=== PATIENT | male | born 1995 | race Caucasian/White ===

== ENCOUNTER 2017-06-26 20:14 | Emergency (ER) | payer OTHER ==
[2017-06-26 20:46] VITALS: BP 133/76; PULSE 98; RESP 18; TEMP 98.6; O2SAT 98
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
[2017-06-26 21:12] LABS: AUTOMATED NEUTROPHIL # 10.6 TH/MM3 (1.8-7.7); BASOPHIL % 0.3 % (0.0-2.0); EOSINOPHIL # 0.3 TH/MM3 (0-0.4); EOSINOPHIL % 1.8 % (0.0-4.0); HEMO FLAGS DIFF FINAL; LYMPH % 17.8 % (9.0-44.0); LYMPHOCYTE # 2.6 TH/MM3 (1.0-4.8); MEAN CELL VOLUME 82.9 FL (80.0-100.0); MEAN CORPUSCULAR HGB CONC 33.8 % (32.0-36.0); MONO % 7.8 % (0.0-8.0); NEUT % 72.3 % (16.0-70.0); PLATELET COUNT 337 TH/MM3 (150-450); RED BLOOD COUNT 4.71 MIL/MM3 (4.50-5.90); RED CELL DISTRIBUTION WIDTH 13.9 % (11.6-17.2); WHITE BLOOD COUNT 14.7 TH/MM3 (4.0-11.0)
[2017-06-26 21:30] LABS: ANION GAP 8 MEQ/L (5-15); AST (GOT) 43 U/L (15-39); BLOOD UREA NITROGEN 10 MG/DL (7-18); CHLORIDE 103 MEQ/L (98-107); GLOMERULAR FILTRATION RATE 137 ML/MIN (>89); POTASSIUM 3.8 MEQ/L (3.5-5.1); SODIUM (NA) 137 MEQ/L (136-145)
[2017-06-26 21:31] LABS: ALT (GPT) 82 U/L (9-52)
[2017-06-26 21:33] LABS: ALKALINE PHOSPHATASE 93 U/L (45-117); TOTAL BILIRUBIN ADULT 0.2 MG/DL (0.2-1.0)
--- NOTE | 2017-06-26 21:57 | RADRPT ---
EXAM DATE/TIME: 06/26/2017 21:43 [facility] COMPARISON: No previous studies available for comparison. INDICATIONS : Altered mental status. RADIATION DOSE: 32.87 CTDIvol (mGy) MEDICAL HISTORY : None SURGICAL HISTORY : None. ENCOUNTER: Initial ACUITY: 1 day PAIN SCALE: 0/10 LOCATION: TECHNIQUE: Multiple contiguous axial images were obtained of the head. Using automated exposure control and adj ustment of the mA and/or kV according to patient size, radiation dose was kept as low as reasonably a chievable to obtain optimal diagnostic quality images. DICOM format image data is available electro nically for review and comparison. FINDINGS: CEREBRUM: The ventricles are normal for age. No evidence of midline shift, mass lesion, hemorrhage or acute in farction. No extra-axial fluid collections are seen. POSTERIOR FOSSA: The cerebellum and brainstem are intact. The 4th ventricle is midline. The cerebellopontine angle i s unremarkable. EXTRACRANIAL: The visualized portion of the orbits is intact. SKULL: The calvaria is intact. No evidence of skull fracture. CONCLUSION: Normal examination. Jose Miguel Son Jr., MD on June 26, 2017 at 21:54 Board Certified Radiologist. This report was verified electronically.
[2017-06-27 08:00] VITALS: BP 132/67; PULSE 76; RESP 16; TEMP 97.8; O2SAT 99
--- NOTE | 2017-06-27 08:30 | PD ---
Physical Exam Date Seen by Provider: Jun 27, 2017 Time Seen by Provider: 08:26 Narrative 22-year-old male patient presents to our facility under protective custody. Patient was medically cleared by previous provider. Patient is currently psychiatrically cleared and Agee act is lifted. I was asked to disposition the patient. Data Data Last Documented VS Vital Signs Date Time Temp Pulse Resp B/P (MAP) Pulse Ox O2 Delivery O2 Flow Rate FiO2 06/26/17 20:46 98.6 98 18 133/76 (95) 98 Orders Orders Complete Blood Count With Diff (06/26/17 20:38) Comprehensive Metabolic Panel (06/26/17 20:38) Psych Screen (06/26/17 20:38) Drug Screen, Random Urine (06/26/17 20:38) Ct Brain W/O Iv Contrast(Rout) (06/26/17 ) Diet Regular Basic (06/27/17 Breakfast) Labs Laboratory Tests Test 06/26/17 20:45 White Blood Count 14.7 TH/MM3 Red Blood Count 4.71 MIL/MM3 Hemoglobin 13.2 GM/DL Hematocrit 39.0 % Mean Corpuscular Volume 82.9 FL Mean Corpuscular Hemoglobin 28.0 PG Mean Corpuscular Hemoglobin Concent 33.8 % Red Cell Distribution Width 13.9 % Platelet Count 337 TH/MM3 Mean Platelet Volume 7.5 FL Neutrophils (%) (Auto) 72.3 % Lymphocytes (%) (Auto) 17.8 % Monocytes (%) (Auto) 7.8 % Eosinophils (%) (Auto) 1.8 % Basophils (%) (Auto) 0.3 % Neutrophils # (Auto) 10.6 TH/MM3 Lymphocytes # (Auto) 2.6 TH/MM3 Monocytes # (Auto) 1.2 TH/MM3 Eosinophils # (Auto) 0.3 TH/MM3 Basophils # (Auto) 0.0 TH/MM3 CBC Comment DIFF FINAL Differential Comment Blood Urea Nitrogen 10 MG/DL Creatinine 0.73 MG/DL Random Glucose 100 MG/DL Total Protein 8.2 GM/DL Albumin 3.9 GM/DL Calcium Level 9.1 MG/DL Alkaline Phosphatase 93 U/L Aspartate Amino Transf (AST/SGOT) 43 U/L Alanine Aminotransferase (ALT/SGPT) 82 U/L Total Bilirubin 0.2 MG/DL Sodium Level 137 MEQ/L Potassium Level 3.8 MEQ/L Chloride Level 103 MEQ/L Carbon Dioxide Level 26.0 MEQ/L Anion Gap 8 MEQ/L Estimat Glomerular Filtration Rate 137 ML/MIN MDM Supervised Visit with ANDREY: Yes Differential Diagnosis Depression versus suicidal ideation versus anxiety versus adjustment disorder versus mood disorder versus bipolar disorder versus schizophrenia versus paranoid disorder versus psychosis versus substance abuse versus alcohol abuse versus alcohol induced psychosis versus homicidality addition versus cutting versus personality disorder Narrative Course I was asked to disposition this patient after the Agee act was lifted. Patient has been cleared and psychiatrically cleared from our facility. This is a well-nourished 22-year-old male patient currently in no acute distress. Patient has a psychiatric history and occasional anger outbursts however he is calm, cooperative and ready to go home at this time. Patient cleared for discharge at this time. Patient will be discharged home with mother. Diagnosis Primary Impression: Aggressive behavior Additional Impression: Prader-Willi syndrome [facility]errals: [facility] (Out patient) Patient Instructions: Brief Psychotic Disorder (ED), General Instructions, Medical Clearance for Psychiatric Care (ED) Additional Instruction: Please return to emergency department if your symptoms return or worsen. Follow up with your primary care provider. May follow-up with Alejo Velasquez and/or [facility] Scripts No Active Prescriptions or Reported Meds Disposition: 01 DISCHARGE HOME Condition: Stable Tika Aguilera Jun 27, 2017 08:30
[2017-06-27 08:44] VITALS: BP 128/71; TEMP 97.8
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
== END 2017-06-27 08:45 | disposition home or self-care (01) ==
LOC: NEPD 20:14
DX: F91.1 Conduct disorder, childhood-onset type (principal); Q87.1 Congenital malformation syndromes predominantly associated with short stature; F84.0 Autistic disorder; F42.9 Obsessive-compulsive disorder, unspecified
CPT/HCPCS: 70450; 80053; 85025; 99284

== ENCOUNTER 2017-07-17 22:56 | Emergency (ER) | payer OTHER ==
[~2017-07-17] VITALS: Ht 162.6 cm; Wt 70.0 kg
[2017-07-17 23:08] VITALS: BP 127/83; PULSE 93; RESP 18; TEMP 98.1; O2SAT 100
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
== END 2017-07-18 01:14 | disposition home or self-care (01) ==
LOC: NEPD 22:56
DX: F84.0 Autistic disorder (principal); Q87.1 Congenital malformation syndromes predominantly associated with short stature; F42.9 Obsessive-compulsive disorder, unspecified
CPT/HCPCS: 99283

== ENCOUNTER 2017-08-12 18:29 | Emergency (ER) | payer OTHER ==
[~2017-08-12] VITALS: Ht 165.1 cm; Wt 90.0 kg
[2017-08-12 18:56] VITALS: BP 137/82; PULSE 89; RESP 18; TEMP 98.7; O2SAT 99
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
[2017-08-12] MEDS ORDERED: TETANUS/DIPHTHERIA TOXOID ADULT 0.5 ML VIAL IM ONE (19:15)
[2017-08-12] MEDS ORDERED: LIDOCAINE 2%/EPINEPHrine 1:100,000 20ML MDV NERV BLOCK ONE (19:15)
--- NOTE | 2017-08-12 19:39 | RADRPT ---
EXAM DATE/TIME: 08/12/2017 19:27 [facility] COMPARISON: No previous studies available for comparison. INDICATIONS : Right tibia laceration. MEDICAL HISTORY : None. SURGICAL HISTORY : None. ENCOUNTER: Initial ACUITY: 1 day PAIN SCORE: Non-responsive. LOCATION: Right distal tibia. FINDINGS: Two view examination of the right tibia demonstrates no evidence of fracture or dislocation. There is soft tissue prominence and disruption in the anterior distal calf region. Bony mineralization is nor mal. No radiopaque foreign bodies. CONCLUSION: 1. Soft tissue prominence and disruption in the anterior distal calf region without radiopaque foreig n body or acute fracture. Jani Riley MD on August 12, 2017 at 19:37 Board Certified Radiologist. This report was verified electronically.
== END 2017-08-13 00:55 | disposition home or self-care (01) ==
LOC: NEPD 18:29
DX: F84.0 Autistic disorder (principal); S81.811A Laceration without foreign body, right lower leg, initial encounter; W22.8XXA Striking against or struck by other objects, initial encounter; Y93.89 Activity, other specified; Y92.008 Other place in unspecified non-institutional (private) residence as the place of occurrence of the external cause; Z23 Encounter for immunization
CPT/HCPCS: 12002; 73590; 90471; 90714

== ENCOUNTER 2017-08-26 16:59 | Emergency (ER) | payer SELFPAY ==
[2017-08-26 17:00] VITALS: BP 140/89; TEMP 98; O2SAT 96
--- NOTE | 2017-08-26 19:58 | PD ---
HPI Chief Complaint: Wound/Suture/Staple Re-Check Time Seen by Provider: 19:54 Travel History International Travel<30 days: No Contact w/Intl Traveler<30days: No Traveled to known affect area: No History of Present Illness HPI 22-year-old white male presents to emergency department accompanied by his mother for evaluation of a laceration which was closed kobi 14 days ago. He is here for staple removal. He denies any fever chills. No drainage. Mild tenderness around the kobi. PFSH Past Medical History Diminished Hearing: No Psychiatric: Yes (OCD R/T PWS) Tetanus Vaccination: < 5 Years Social History Alcohol Use: No Tobacco Use: No Substance Use: No Allergies-Medications (Allergen,Severity, Reaction): Coded Allergies: No Known Allergies (Verified Allergy, Unknown, 08/12/17) Reported Meds & Prescriptions Reported Meds & Active Scripts Active No Active Prescriptions or Reported Medications Review of Systems General / Constitutional: No: Fever Eyes: No: Visual changes HENT: No: Headaches Cardiovascular: No: Chest Pain or Discomfort Respiratory: No: Shortness of Breath Gastrointestinal: No: Abdominal Pain Genitourinary: No: Dysuria Musculoskeletal: No: Pain Skin: No Rash Neurologic: No: Weakness Psychiatric: No: Depression Endocrine: No: Polydipsia Hematologic/Lymphatic: No: Easy Bruising Physical Exam Narrative GENERAL: This is a well-nourished, well-developed patient, in no apparent distress. SKIN: No rashes, ecchymoses or lesions. Warm and dry. HEAD: Atraumatic. Normocephalic. EYES: PERRL, EOMI, no discharge or injection. No scleral icterus. EARS: Clear NOSE: Nasal turbinates appear normal. THROAT: Mucosa pink and moist. Airway patent. NECK: Trachea midline. supple, moves head freely. LUNGS: Clear to auscultation. CV: Regular in rhythm. ABDOMEN: Soft nontender. EXT: No clubbing cyanosis or edema. Patient has a well-healed laceration to the right anterior pretibial region. No signs of infection. There is mild erythema around the kobi which I suspect is more rate suture reaction from being in 14 days. Data Data Last Documented VS Vital Signs Date Time Temp Pulse Resp B/P (MAP) Pulse Ox O2 Delivery O2 Flow Rate FiO2 08/26/17 20:07 08/26/17 17:00 98.0 111 28 96 Room Air Orders Orders Ed Discharge Order (08/26/17 19:58) MDM Medical Decision Making Medical Screen Exam Complete: Yes Emergency Medical Condition: Yes Medical Record Reviewed: Yes Differential Diagnosis MDM: High Differential diagnoses: Fracture, sprain, strain, dislocation, contusion, neurovascular injury Narrative Course Patient Tell are removed without incidence dressing applied. This is an counter for staple removal Diagnosis Primary Impression: Encounter for staple removal Patient Instructions: General Instructions Additional Instructions: Rest. Elevation. Keep clean and dry. Follow-up with your doctor as needed. Med/Other Pt SpecificInfo: Wound Care Scripts No Active Prescriptions or Reported Meds Disposition: 01 DISCHARGE HOME Condition: Stable Colten Carrasco Aug 26, 2017 19:58
== END 2017-08-26 20:14 | disposition home or self-care (01) ==
LOC: NED 16:59 → NEPK 20:14
DX: Z48.02 Encounter for removal of sutures (principal)
CPT/HCPCS: 99281

== ENCOUNTER 2017-11-02 17:01 | Emergency (ER) | payer OTHER, MEDICAID ==
--- NOTE | 2017-11-02 18:39 | PD ---
HPI Chief Complaint: Psychiatric Symptoms Time Seen by Provider: 18:28 Travel History International Travel<30 days: No Contact w/Intl Traveler<30days: No History of Present Illness HPI 22-year-old male with Prader-Willi syndrome, is brought in under the Agee act with increased aggressive behavior towards his mother, with reports of possible suicidal ideation. Patient is a very poor historian due to his mental condition. He has no complaints. He has no obvious acute injuries. He has no known drug allergies per [facility] Past Medical History Medical History: Unable to Obtain Diminished Hearing: No Psychiatric: Yes (OCD R/T PWS) Social History Alcohol Use: No Tobacco Use: No Substance Use: No Allergies-Medications (Allergen,Severity, Reaction): Coded Allergies: No Known Allergies (Verified Allergy, Unknown, 08/12/17) Reported Meds & Prescriptions Reported Meds & Active Scripts Active No Active Prescriptions or Reported Medications Review of Systems ROS Limitations: Clinical Condition, Poor Historian Except as stated in HPI: all other systems reviewed are Neg General / Constitutional: No: Fever Eyes: No: Visual changes HENT: No: Headaches Cardiovascular: No: Chest Pain or Discomfort Respiratory: No: Shortness of Breath Gastrointestinal: No: Abdominal Pain Genitourinary: No: Dysuria Musculoskeletal: No: Pain Skin: No Rash Neurologic: No: Weakness Psychiatric: No: Depression Endocrine: No: Polydipsia Hematologic/Lymphatic: No: Easy Bruising Physical Exam Exam Limitations: Clinical Condition, Poor Historian Narrative GENERAL: Patient appears in no obvious distress per SKIN: Warm and dry. Normal color. Normal turgor. Patient has superficial cut to the right anterior knee covered with bandage. Patient also has superficial cut to the right ring finger cover with bandage. HEAD: Atraumatic. Normocephalic. EYES: Pupils equal and round. No scleral icterus. No injection or drainage. ENT: No nasal bleeding or discharge. Mucous membranes pink and moist. Pharynx is clear. Airways patent NECK: Trachea midline. Supple nontender CARDIOVASCULAR: Regular rate and rhythm. RESPIRATORY: No accessory muscle use. Clear to auscultation. Breath sounds equal bilaterally. MUSCULOSKELETAL: Extremities without clubbing, cyanosis, or edema. No obvious deformities. NEUROLOGICAL: Awake and alert. No obvious cranial nerve deficits. Motor grossly within normal limits. Five out of 5 muscle strength in the arms and legs. Patient does speak with during my exam does not speak to me when questioned. PSYCHIATRIC: Unable to assess per Data Data Orders Orders Diet Regular Basic (11/02/17 Dinner) Complete Blood Count With Diff (11/02/17 18:30) Comprehensive Metabolic Panel (11/02/17 18:30) Thyroid Stimulating Hormone (11/02/17 18:30) Psych Screen (11/02/17 18:30) Urinalysis - C+S If Indicated (11/02/17 18:37) MDM Medical Decision Making Medical Screen Exam Complete: Yes Emergency Medical Condition: Yes Differential Diagnosis Agee act. Aggressive behavior. Suicidal ideation Narrative Course Psychiatric labs were ordered per protocol. Patient is medically cleared for psychiatric evaluation. Psych screen is ordered. Diagnosis Primary Impression: Prader-Willi syndrome Scripts No Active Prescriptions or Reported Meds Condition: Stable Edinson Hui Nov 02, 2017 18:39
[2017-11-02 18:57] VITALS: BP 164/76; PULSE 107; RESP 20; O2SAT 97
[2017-11-02] MEDS ORDERED: diphenhydrAMINE HCL 50 MG/ML VIAL IM SCH (22:20)
[2017-11-02] MEDS ORDERED: OLANZapine IM 10 MG VIAL IM SCH (22:20)
[2017-11-02] MEDS ORDERED: OLANZapine IM 10 MG VIAL IM ONE (22:27)
[2017-11-02] MEDS ORDERED: diphenhydrAMINE HCL 50 MG/ML VIAL ONE (22:27)
[2017-11-03 02:32] VITALS: RESP 18
--- NOTE | 2017-11-03 11:03 | PD ---
Physical Exam Date Seen by Provider: Nov 03, 2017 Time Seen by Provider: 11:01 Narrative 22-year-old patient with autistic disorder, previously medically cleared for psychiatric evaluation, has been seen by Dr. Marie and felt to be psychiatrically stable for discharge. Patient's mother has been called and spoken to by the psychiatrist. Follow-up will be based on psychiatric note. Patient remains medically stable at this time. Data Data Last Documented VS Vital Signs Date Time Temp Pulse Resp B/P (MAP) Pulse Ox O2 Delivery O2 Flow Rate FiO2 11/03/17 02:32 18 11/02/17 18:57 107 97 Room Air Orders Orders Diet Regular Basic (11/02/17 Dinner) Complete Blood Count With Diff (11/02/17 18:30) Comprehensive Metabolic Panel (11/02/17 18:30) Thyroid Stimulating Hormone (11/02/17 18:30) Psych Screen (11/02/17 18:30) Urinalysis - C+S If Indicated (11/02/17 18:37) Diphenhydramine Inj (Benadryl Inj) (11/02/17 22:27) Olanzapine Inj (Zyprexa Inj) (11/02/17 22:27) Olanzapine Inj (Zyprexa Inj) (11/02/17 22:20) Diphenhydramine Inj (Benadryl Inj) (11/02/17 22:20) Diet Regular Basic (11/03/17 Breakfast) MDM Medical Record Reviewed: Yes Supervised Visit with ANDREY: Yes Narrative Course 22-year-old patient with autistic disorder, previously medically cleared for psychiatric evaluation, has been seen by Dr. Marie and felt to be psychiatrically stable for discharge. Patient's mother has been called and spoken to by the psychiatrist. Follow-up will be based on psychiatric note. Patient remains medically stable at this time. Diagnosis Primary Impression: Prader-Willi syndrome Patient Instructions: General Instructions Scripts No Active Prescriptions or Reported Meds Disposition: 01 DISCHARGE HOME Condition: Stable Edinson Hiu Nov 03, 2017 11:03
[2017-11-03 11:17] VITALS: BP 160/82; PULSE 120; RESP 22
--- NOTE | 2017-11-03 14:21 | PD.PSY.CON ---
Provisional Diagnosis Admission Date [place]. Autism spectrum disorder, [place]. Deferred [place]. Prader-Willi's syndrome History of Present Illness Service Psychiatry Consult Requested By ER team Reason for Consult Under Agee act Primary Care Physician Unknown HPI The patient is 22-year-old man, domiciled with his mother in the [place], unemployed, single, with psychiatric history of autism spectrum disorder, developmental delay, moderate to severe intellectual disability, due to Prader Thompson syndromes, no previous psychiatric hospitalizations, patient is not engaged in outpatient psychiatric care, no medications, with medical history of Prader-Willi syndrome, who was brought in under the Agee act with increased aggressive behavior towards his mother, with reports of possible suicidal ideation. On psychiatric evaluation the patient is found in the [place] of the ER, he is running, playing, making weird noises, very childish like. He is not agitated, he is not aggressive, persistently smiling. Patient is a very poor historian due to his mental condition/intellectual disability. Patient does not have any psychiatric complaint. He does not answer to any of my questions. There is no voice of suicidal ideation or homicidal ideation, no visual or auditory hallucinations. I spoke with his mother Corina Joe, [phone], who explains "a couple of things in the kitchen". She became scared, the patient is not usually aggressive, and she preferred to send him to the ER. She reports that the patient was in Abilify in the past for poor impulse control and aggressive behavior, but he has not been taking the medication for a long time now. I let her know that the patient has been very calm, cooperative, childlike in the unit, and she admits that this is his baseline. I also explained her that explosive behavior, poor impulse control is part of the nature of intellectual disability and can be expected from time to time. She verbalized agreement with this idea, as well that she verbalized agreement with find an outpatient psychiatric or as soon as possible. Review of Systems Constitutional: DENIES: Diaphoretic episodes, Fatigue, Fever, Weight gain, Weight loss, Chills, Dizziness, Change in appetite, Night Sweats Endocrine: DENIES: Heat/cold intolerance, Polydipsia, Polyuria, Polyphagia Eyes: DENIES: Blurred vision, Diplopia, Eye inflammation, Eye pain, Vision loss , Photosensitivity, Double Vision Ears, nose, mouth, throat: DENIES: Tinnitus, Hearing loss, Vertigo, Nasal discharge, Oral lesions, Throat pain, Hoarseness, Ear Pain, Running Nose, Epistaxis, Sinus Pain, Toothache, Odynophagia Respiratory: DENIES: Apneas, Cough, Snoring, Wheezing, Hemoptysis, Sputum production, Shortness of breath Cardiovascular: DENIES: Chest pain, Palpitations, Syncope, Dyspnea on Exertion , PND, Lower Extremity Edema, Orthopnea, Claudication Gastrointestinal: DENIES: Abdominal pain, Black stools, Bloody stools, Constipation, Diarrhea, Nausea, Vomiting, Difficulty Swallowing, Anorexia Genitourinary: DENIES: Sexual dysfunction, Urinary frequency, Urinary incontinence, Urgency, Hematuria, Dysuria, Nocturia, Penile Discharge, Testicular Pain, Testicular Swelling Musculoskeletal: DENIES: Joint pain, Muscle aches, Stiffness, Joint Swelling, Back pain, Neck pain Integumentary: DENIES: Abnormal pigmentation, Nail changes, Pruritus, Rash Hematologic/lymphatic: DENIES: Bruising, Lymphadenopathy Immunologic/allergic: DENIES: Eczema, Urticaria Neurologic: DENIES: Abnormal gait, Headache, Localized weakness, Paresthesias, Seizures, Speech Problems, Tremor, Poor Balance Psychiatric: DENIES: Anxiety, Confusion, Mood changes, Depression, Hallucinations, Agitation, Suicidal Ideation, Homicidal Ideation, Delusions Past Family Social History Coded Allergies: No Known Allergies (Verified Allergy, Unknown, 08/12/17) No Active Prescriptions or Reported Meds Physical Exam Vital Signs Vital Signs Date Time Temp Pulse Resp B/P (MAP) Pulse Ox O2 Delivery O2 Flow Rate FiO2 11/03/17 11:17 120 22 160/82 (108) Room Air 11/02/17 18:57 97 I/O 11/03/17 11/03/17 11/04/17 08:00 16:00 00:00 Intake Total 360 ml 360 ml Balance 360 ml 360 ml Mental Status Examination Appearance: Appropriate Consciousness: Alert Motor Activity: Abnormal gait Speech: Other (Mute mute) Mood: Appropriate Affect: Appropriate Insight: Poor Judgment: Poor Mental Status Exam Remarks MSE is limited due to the level of intellectual disability Assessment & Plan Problem List: (1) Autism spectrum disorder ICD Codes: F84.0 - Autistic disorder Assessment & Plan: Patient does not meet criteria for involuntary psychiatric admission at this moment. He does not present any neuropsychiatric symptoms that require an immediate psychiatric intervention. Aggressive behavior poor impulse control, agitation is part of the nature of intellectual disability and autism, he has not endorsed any suicidality or homicidality. On longitudinal observation the patient has been very childlike, is mildly very often, with prominent mannerisms, but no agitated or aggressive. His mother was educated about the importance of engaging the patient in outpatient psychiatric care for management of poor impulse control. Agee act will be lifted. Assessment & Plan Estimated LOS: days Manohar Lloyd MD Nov 03, 2017 14:21
== END 2017-11-03 14:00 | disposition home or self-care (01) ==
LOC: NEPJ 17:01
DX: Q87.1 Congenital malformation syndromes predominantly associated with short stature (principal); F84.0 Autistic disorder; F42.8 Other obsessive-compulsive disorder
CPT/HCPCS: 99284; J1200

== ENCOUNTER 2017-12-12 22:46 | Emergency (ER) | payer OTHER, MEDICAID ==
[2017-12-12 22:58] VITALS: BP 143/95; PULSE 111; RESP 22; TEMP 98.5; O2SAT 99
--- NOTE | 2017-12-12 23:24 | PD ---
HPI Chief Complaint: Psychiatric Symptoms Time Seen by Provider: 23:16 Travel History International Travel<30 days: No Contact w/Intl Traveler<30days: No Traveled to known affect area: No History of Present Illness HPI 22-year-old male with history of Prader-Willi syndrome presents emergency department under Agee act for psychiatric evaluation. Patient got an argument with his mother this evening. He became physical with her. Please were contacted and the patient was placed under Agee act. Patient tells me that he is "not bad anymore." He does not offer much history regarding this evening. Denies any acute medical needs or pain. He has no other symptoms to report. PFSH Past Medical History Diabetes: No Diminished Hearing: No Genetic Disorder: Yes Insomnia: Yes Psychiatric: Yes (OCD R/T PWS) Past Surgical History Oral Surgery: Yes Social History Alcohol Use: No Tobacco Use: No Substance Use: No Allergies-Medications (Allergen,Severity, Reaction): Coded Allergies: No Known Allergies (Verified Allergy, Unknown, 12/12/17) Reported Meds & Prescriptions Reported Meds & Active Scripts Active No Active Prescriptions or Reported Medications Review of Systems Except as stated in HPI: all other systems reviewed are Neg Physical Exam Narrative GENERAL: Well-nourished male patient, ambulatory and in no acute distress. SKIN: Focused skin assessment warm/dry. HEAD: Atraumatic. Normocephalic. EYES: Pupils equal and round. No scleral icterus. No injection or drainage. ENT: No nasal bleeding or discharge. Mucous membranes pink and moist. NECK: Trachea midline. No JVD. CARDIOVASCULAR: Regular rate and rhythm RESPIRATORY: No accessory muscle use. Clear to auscultation. Breath sounds equal bilaterally. GASTROINTESTINAL: Abdomen soft, non-tender, nondistended. Hepatic and splenic margins not palpable. MUSCULOSKELETAL: No obvious deformities. No clubbing. No cyanosis. No edema. NEUROLOGICAL: Awake and alert. Patient moves all extremities.. Normal speech. Data Data Last Documented VS Vital Signs Date Time Temp Pulse Resp B/P (MAP) Pulse Ox O2 Delivery O2 Flow Rate FiO2 12/12/17 22:58 98.5 111 22 143/95 (111) 99 Orders Orders Psych Screen (12/12/17 23:16) [facility] Medical Decision Making Medical Screen Exam Complete: Yes Emergency Medical Condition: Yes Medical Record Reviewed: Yes Differential Diagnosis Mood disorder versus personality disorder versus adjustment reaction disorder Narrative Course 22-year-old male presents emergency department under a Agee act for psychiatric evaluation. Patient does have some aspect of an autistic spectrum disorder. He is very anxious about being here. I will not be adding additional lab work to the patient for medical clearance. He is medically cleared to undergo psychiatric screening for further evaluation and disposition. Mental health screening discussed with the patient. Psychiatric screen ordered. Diagnosis Primary Impression: Autism spectrum disorder Scripts No Active Prescriptions or Reported Meds Condition: Amelia Nugent Dec 12, 2017 23:24
[2017-12-13 05:53] VITALS: BP 142/67; PULSE 86; RESP 17; O2SAT 96
--- NOTE | 2017-12-13 10:31 | PD ---
History of Present Illness Chief Complaint: Psychiatric Symptoms Time Seen by Provider: 10:25 Travel History International Travel<30 Days: No Contact w/Intl Traveler<30days: No Known affected area: No Legal Status Legal Status: Agee Act Agee Act Signed By: Austen Carter History of Present Illness: History of Present Illness HPI 22-year-old, single, male with history of Prader-Willi syndrome, autism spectrum disorder, intellectual disability, who presents emergency department under Agee initiated by law enforcement act for psychiatric evaluation. The report alleges that they were called in reference to a mentally ill person who was aggressive. The mother reported that the patient was agitated and had been hitting her. The patient has been seen in the ED previously for very similar behaviors associated with his autism spectrum disorder as well as his intellectual disability. Patient has been monitored in the emergency department and he has presented no agitation and no aggressive behavior. Patient is seen in Main ED. He is sitting quietly on his bed. He appears to be frightened at this time. He is mostly nonverbal. Does not appear to be internally stimulated. Telephone call to his mother at [phone]. Mother states that he has episodes of becoming aggressive and agitated. She understands that his behaviors are as a result of his intellectual disability, autism spectrum disorder. She is in the process of getting him evaluated and possible treatment since he just received his medical insurance. I have informed her that he has not been aggressive or agitated here in the ED and that he is not appropriate for inpatient psychiatric admission. The Agee act as lifted. I have recommended that she seek care on an outpatient basis. She will pick him up from the ed. the Agee act as lifted. Psychiatrically clear for discharge from the ED. PFSH Past Medical History Developmental Delay: Yes Diabetes: No Diminished Hearing: No Genetic Disorder: Yes Insomnia: Yes Psychiatric: Yes (OCD R/T PWS) Past Surgical History Oral Surgery: Yes Psychiatric History Psychiatric History Hx Psychiatric Treatment: NONE History of Inpatient Treatment: No Guns or firearms in home: No Social History Single, never , lives with his mother. Hx Alcohol Use: No Hx Tobacco Use: No Hx Substance Use: No Hx of Substance Use Treatment: No Family Psychiatric History Negative Allergies-Medications (Allergen,Severity, Reaction): Coded Allergies: No Known Allergies (Verified Allergy, Unknown, 12/12/17) Reported Meds & Prescriptions Reported Meds & Active Scripts Active No Active Prescriptions or Reported Medications Review of Systems ROS Limitations: Poor Historian Mental Status Examination Appearance: Appropriate Consciousness: Alert Orientation: x4, Person (Patient is mostly nonverbal) Motor Activity: Normal gait Speech: Other (Mostly nonverbal) Language: Other (Poor) Fund of Knowledge: Poor Attention and Concentration: Inadequate Memory: Impaired (Poor historian) Mood: Appropriate, Other Affect: Sad Thought Process & Associations: Other (Does not appear to be experiencing any thought process or content disturbance) Thought Content: Appropriate Hallucination Type: None Delusion Type: None Suicidal Ideation: No Suicidal Plan: No Suicidal Intention: No Homicidal Ideation: No Homicidal Plan: No Homicidal Intention: No Insight: Poor Judgment: Impulsive MDM Medical Decision Making Medical Record Reviewed: Yes Assessment/Plan Patient is a 22-year-old male with Prader Willi syndrome, autism spectrum disorder, intellectual disability does who presented under a Agee act after he became aggressive at home with his mother. He was monitored here in the emergency room department and remain under behavioral control with no aggressive behavior. He does not present any neuropsychiatric symptoms that require an immediate psychiatric intervention. Aggressive behavior poor impulse control, agitation is part of the nature of intellectual disability and autism, he has not endorsed any suicidality or homicidality. His mother was educated about the importance of engaging the patient in outpatient psychiatric care for management of poor impulse control. Agee act will be lifted. Orders Orders Psych Screen (12/12/17 23:16) Diet Regular Basic (12/13/17 Breakfast) Results Vital Signs Date Time Temp Pulse Resp B/P (MAP) Pulse Ox O2 Delivery O2 Flow Rate FiO2 12/13/17 05:53 86 17 142/67 (92) 96 Room Air 12/12/17 22:58 98.5 111 22 143/95 (111) 99 Diagnosis Primary Impression: Autism spectrum disorder Additional Impression: Prader-Willi syndrome Psychiatrically Cleared: Yes Med/ Other Pt Specific Info: No Meds Exist/No RX given Prescriptions No Active Prescriptions or Reported Meds Disposition: 01 DISCHARGE HOME Condition: Stable Problem Qualifiers Jade Boo [facility] Dec 13, 2017 10:31
--- NOTE | 2017-12-13 10:39 | PD ---
Physical Exam Date Seen by Provider: Dec 13, 2017 Time Seen by Provider: 10:37 Narrative 22-year-old male with history of Prader-Willi syndrome presents emergency department under [employer] act for psychiatric evaluation. Patient was medically cleared, and seen by psychiatric staff who cleared the patient of his Agee act. Patient will be released to his mother's care. Follow-up will be based on psychiatric note. Patient remains medically stable at this time. Data Data Last Documented VS Vital Signs Date Time Temp Pulse Resp B/P (MAP) Pulse Ox O2 Delivery O2 Flow Rate FiO2 12/13/17 05:53 86 17 142/67 (92) 96 Room Air 12/12/17 22:58 98.5 Orders Orders Psych Screen (12/12/17 23:16) Diet Regular Basic (12/13/17 Breakfast) MDM Medical Record Reviewed: Yes Supervised Visit with ANDREY: Yes Narrative Course 22-year-old male with history of Prader-Willi syndrome presents emergency department under [employer] act for psychiatric evaluation. Patient was medically cleared, and seen by psychiatric staff who cleared the patient of his Agee act. Patient will be released to his mother's care. Follow-up will be based on psychiatric note. Patient remains medically stable at this time. Diagnosis Primary Impression: Autism spectrum disorder Patient Instructions: General Instructions Med/Other Pt SpecificInfo: No Change to Meds Scripts No Active Prescriptions or Reported Meds Disposition: 01 DISCHARGE HOME Condition: Stable Edinson Hui Dec 13, 2017 10:39
[2017-12-13 16:24] VITALS: BP 127/76
== END 2017-12-13 16:19 | disposition home or self-care (01) ==
LOC: NEPD 22:46
DX: F84.0 Autistic disorder (principal); Q87.1 Congenital malformation syndromes predominantly associated with short stature
CPT/HCPCS: 99284